=== PATIENT | male | born 1965 | race Caucasian/White ===

== ENCOUNTER → 2016-09-07 | Outpatient (CLI) | payer OTHER ==
[~2016-09-07] MED LIST: ATOR10TA66 PO; CHOL200035 PO; FISH1CAP15 PO; HYDR-3730 PO; MELO-195 PO; MULT1CAP27 PO; RABE20TA PO
--- OUTSIDE RECORDS SUMMARY | 2016-09-07 15:51 | XMS REPORT | Continuity of Care Document ---
Author Author [facility] Organization [facility] Address Unknown Phone Unavailable Allergies Active Description Code Type Severity Reaction Onset Reported/Identified Relationship to Patient Clinical Status Yes No Known Drug Allergies [id number] Drug Allergy Unknown N/ A 12/11/2014 Medications Problems Date Dx Coded Attending Type Code Diagnosis Diagnosed By 12/12/2014 Ot 723.1 12/12/2014 JENNIE ROJAS, BRIANNE Lorenzo Ot 807.02 12/12/2014 JENNIE ROJAS, BRIANNE Lorenzo Ot E000.8 12/12/2014 JENNIE ROJAS, BRIANNE Lorenzo Ot E849.0 12/12/2014 JENNIE ROJAS, BRIANNE Lorenzo Ot E885.9 12/12/2014 BRIANNE SCHNEIDER MD Ot V54.89 12/12/2014 KELSEY JENKINS MD Ot 717.7 12/12/2014 KELSEY JENKINS MD Ot 733.92 06/19/2015 KELSEY JENKINS MD Ot M94.261 06/19/2015 KELSEY JENKINS MD Ot Z79.899 07/02/2015 KELSEY JENKINS MD Ot M94.261 07/02/2015 KELSEY JENKINS MD Ot Z01.818 07/02/2015 KELSEY JENKINS MD Ot Z11.2 Procedures Results Encounters ACCT No. Visit Date/Time Discharge Status Pt. Type Provider Facility Loc./Unit Complaint [id number] 06/19/2015 06:00:00 2014 10:05:00 DIS Outpatient KELSEY JENKINS MD [facility] [id number] 12/12/2014 07:48:00 2014 12:25:00 DIS Outpatient KELSEY JENKINS MD [facility] [id number] 12/11/2014 08:55:00 2014 23:59:59 CLS Outpatient KELSEY JENKINS MD [facility] PREOP [id number] 03/08/2014 08:14:00 2013 23:59:59 CLS Outpatient BRIANNE SCHNEIDER MD [facility] RAD [id number] 06/29/2013 10:21:00 2012 23:59:59 CLS Outpatient BRIANNE SCHNEIDER MD [facility] RAD [id number] 06/13/2015 07:55:00 ACT Outpatient KELSEY JENKINS MD [facility] PREOP [id number] 01/09/2011 08:05:00 Document Registration
--- NOTE | 2016-09-07 19:04 | Diagnostic Imaging Report ---
INDICATION: Worsening low back pain AP and lateral views of the lumbar spine are obtained. Lumbar spinal curvature and alignment are within normal limits. Vertebral body heights and disc spaces are maintained. There is no evidence of fracture or malalignment. There are no abnormal lytic or sclerotic focus. IMPRESSION: No radiographic evidence of acute lumbar spinal abnormality. Dictated by: Dictated on workstation # [id number]
== END ==
LOC: RAD 15:49
PROVIDERS: ATTEND Nurse Practitioner Family
DX: M54.5 Low back pain (principal)
CPT/HCPCS: 72100

== ENCOUNTER 2018-01-07 05:39 | Outpatient (CLI) | payer OTHER ==
[~2018-01-07] VITALS: Ht 185.4 cm; Wt 83.0 kg
[2018-01-07] MEDS ORDERED: ATOR10TA66 PO (12:11)
[2018-01-07] MEDS ORDERED: ASCO10006 PO (12:11)
[2018-01-07] MEDS ORDERED: MELO15TA39 PO (12:11)
[2018-01-07] MEDS ORDERED: OMEG-109 PO (12:11)
[2018-01-07] MEDS ORDERED: ZOLP10TA PO (12:11)
[2018-01-07] MEDS ORDERED: RABE20TA27 PO (12:11)
== END 2018-01-07 12:56 ==
LOC: PREOP 05:39
PROVIDERS: ATTEND Surgery
DX: Z01.818 Encounter for other preprocedural examination (principal)

== ENCOUNTER 2018-01-13 08:20 | Day surgery (SDC) | payer OTHER ==
[~2018-01-13] VITALS: Ht 185.4 cm; Wt 83.0 kg
[~2018-01-13 08:20] MED LIST changes: +ASCO10006 PO; +MELO15TA39 PO; +OMEG-109 PO; +RABE20TA27 PO; +ZOLP10TA PO
[2018-01-13 08:30] VITALS: BP 133/78
[2018-01-13] MEDS ORDERED: NS IV 500 ML 500 ML ONE (08:46)
[2018-01-13] MEDS ORDERED: NS IV 500 ML 500 ML IV PRN (08:46)
[2018-01-13] MEDS ORDERED: fentaNYL INJECTION 100 MCG/2 ML AMP ONE (10:23)
[2018-01-13] MEDS ORDERED: MIDAZOLAM 2 MG/2 ML (VERSED) VIAL ONE ×4 (10:23→10:24)
[2018-01-13] MEDS: MIDAZOLAM 2 MG/2 ML (VERSED) VIAL IVP PRN ×4 (10:33→10:39)
[2018-01-13] MEDS: fentaNYL INJECTION 100 MCG/2 ML AMP IVP PRN ×2 (10:34→10:36)
--- NOTE | 2018-01-13 10:51 | Conscious Sedation/ASA ---
Conscious Sedation Pre-Proced Time Reviewed: 09:55 ASA Class: 2 Airway Mallampati Classification: (shinnecock appropriate class) I. II. III, IV Lungs Heart ASA score ASA 1: a normal healthy patient ASA 2: a patient with a mild systemic disease (mid diabetes, controlled hypertension, obesity ASA 3: a patient with a severe systemic disease that limits activity (angina , COPD, prior Myocardial infarction) ASA 4: a patient with an incapacitating disease that is a constant threat to life (CHF, renal failure) ASA 5: a moribund patient not expected to survive 24 hrs. (ruptured aneurysm) ASA 6: a declared brain patient whose organs are being harvested. For emergent operations, add the letter E after the classification Grade 1 Sedation Plan: Discussed options with patient/fam Note The patient is an appropriate candidate to undergo the planned procedure, sedation, and anesthesia. The patient immediately re-assessed prior to indication. LUIS WATKINS MD Jan 13, 2018 10:51 am
--- NOTE | 2018-01-13 10:51 | History & Physicial ---
History of Present Illness History of Present Illness Reason for visit/HPI To undergo screening colonoscopy. Denies any relevant family history. Date of Admission 01/13/18 Date Seen by Provider: Jan 13, 2018 Time Seen by Provider: 09:55 I consulted on this patient on 01/13/18 10:48 Attending Physician Luis Walton MD Admitting Physician Gi Valverde MD Consult Allergies and Home Medications Allergies Coded Allergies: No Known Drug Allergies (Unverified , 01/07/18) Home Medications Ascorbic Acid 1,000 Mg Tablet, 1,000 MG PO DAILY, (Reported) Atorvastatin Calcium 10 Mg Tablet, 10 MG PO HS, (Reported) Meloxicam 15 Mg Tablet, 15 MG PO DAILY, (Reported) Cougar-3 Fatty Acids/Fish Oil 1 Each Capsule, 1 EACH PO DAILY, (Reported) Rabeprazole Sodium 20 Mg Tablet.dr, 20 MG PO DAILY, (Reported) Zolpidem Tartrate 10 Mg Tablet, 5 MG PO HS, (Reported) Patient Home Medication List Home Medication List Reviewed: Yes Past Myqbwgb-Eeumsf-Kszput Hx Patient Social History Marrital Status: Employed/Student: employed Alcohol Use: Rarely Uses Recreational Drug Use: No Smoking Status: Never a Smoker Recent Foreign Travel: No Contact w/other who traveled: No Recent Hopitalizations: No Recent Infectious Disease Expo: No Seasonal Allergies Seasonal Allergies: No Surgeries Yes Orthopedic Respiratory No Cardiovascular No High Cholesterol Neurological No Reproductive System Hx Reproductive Disorders: No Sexually Transmitted Disease: No HIV/AIDS: No Genitourinary No Gastrointestinal Yes Gastroesophageal Reflux, Chronic Diarrhea Musculoskeletal Yes Arthritis Endocrine History of Endocrine Disorders: No HEENT History of HEENT Disorders: Yes Loss of Vision: Denies Hearing Impairment: Denies Cancer No Psychosocial History of Psychiatric Problem: No Integumentary History of Skin or Integumenta: No Blood Transfusions Adverse Reaction to a Blood Tr: No (N/A) Reviewed Nursing Assessment Reviewed/Agree w Nursing PMH: No Constitutional: no symptoms reported EENTM: no symptoms reported Respiratory: no symptoms reported Cardiovascular: no symptoms reported Gastrointestinal: no symptoms reported Genitourinary: no symptoms reported Musculoskeletal: joint pain Skin: no symptoms reported Psychiatric/Neurological: No Symptoms Reported Physical Exam Vital Signs Vital Signs - First Documented 01/13/18 08:30 Temp 97.6 Pulse 62 Resp 20 B/P (MAP) 133/78 (96) Pulse Ox 98 O2 Delivery Room Air Capillary Refill : Height, Weight, BMI Height: 6'1.00" Weight: 183lbs.0.0oz.[id number]; 24.1 BMI Method: General Appearance: No Apparent Distress Neck: Normal Inspection Respiratory: Lungs Clear Cardiovascular: Regular Rate, Rhythm Gastrointestinal: Non Tender, Soft Rectal: Deferred Extremity: Normal Inspection Neurologic/Psychiatric: Oriented x3 Skin: Warm/Dry Assessment/Plan Assessment and Plan Gentleman here to undergo screening colonoscopy. Discussed in detail. Admission Diagnosis Admission Status: Other (Outpt Proc) LUIS WALTON MD Jan 13, 2018 10:51 am
--- NOTE | 2018-01-13 10:53 | Endo Procedure Record ---
Endo Procedure Report Date of Procedure Last Colonoscopy: Yes (2006) Jan 13, 2018 Surgeon (s) LUIS WATKINS MD Post Procedure/Op Diagnosis Normal colonoscopy Procedure Performed Colonoscopy to cecum Description of Procedure Anesthesia Type: Conscious Sedation Specimen(s) collected/removed None Description of the Procedure Indication for the procedure: This gentleman came in for screening colonoscopy. He denied any family history of polyps and colon cancer. Informed consent was obtained after reviewing the procedure in detail. Description of procedure: He was placed in left lateral decubitus position and his vital signs were monitored. Conscious sedation was achieved using Versed and fentanyl. Digital rectal examination was unremarkable. The colonoscope was introduced and advanced all the cecum Quality of bowel preparation was reasonable. The scope was then withdrawn slowly and the mucosa examined in a systematic fashion. There was no abnormality He tolerated the procedure well and was taken back to the nursing area in a stable condition. Impression: Normal screening colonoscopy. No family history. Recommend repeating in 10 years. Copy Copies To 1: MIGUELINA NATHAN MD, XAVIER M MD Jan 13, 2018 10:53 am
--- NOTE | 2018-01-13 10:54 | Discharge Inst-Simple/Standard ---
Discharge Inst-Standard Discharge Medications New, Converted or Re-Newed RX: Other Patient Instructions/Follow Up Plan of Care/Instructions/FU: Repeat colonoscopy in 10 years Activity as Tolerated: Yes Discharge Diet: No Restrictions LUIS WATKINS MD Jan 13, 2018 10:54 am
[2018-01-13 11:15] VITALS: BP 114/65
[2018-01-13 11:44] VITALS: BP 126/90
[2018-01-13 11:50] VITALS: BP 114/65
== END 2018-01-13 11:50 | disposition home or self-care (01) ==
LOC: ENDO 08:20
PROVIDERS: ATTEND Surgery
DX: Z12.11 Encounter for screening for malignant neoplasm of colon (principal)

== ENCOUNTER → 2018-12-23 | Outpatient (CLI) | payer OTHER | LOC: RAD 13:39 | PROVIDERS: ATTEND Orthopaedic Surgery | DX: M75.112 Incomplete rotator cuff tear or rupture of left shoulder, not specified as traumatic (principal); Z53.8 Procedure and treatment not carried out for other reasons ==

== ENCOUNTER 2021-05-15 10:02 | Outpatient (CLI) | payer OTHER ==
[~2021-05-15] VITALS: Ht 185.4 cm; Wt 83.9 kg
[~2021-05-15 10:02] MED LIST changes: +ASCO100024 PO; -ASCO10006 PO; -RABE20TA27 PO; +RABE20TA30 PO
[2021-05-15] MEDS ORDERED: ONDANSETRON 4 MG/2 ML (SDV) Z0FRAN IV PRN (10:15)
[2021-05-15] MEDS ORDERED: EPINEPHrine INJECTION 1 MG/ML AMP IM PRN (10:15)
[2021-05-15] MEDS ORDERED: CASIRIVIMAB/IMDEVIMAB 1,200 MG in NS (IVPB) 250 ML IV ONE (10:15)
[2021-05-15] MEDS ORDERED: ACETAMINOPHEN 500 MG TAB (TYLENOL) PO PRN (10:15)
[2021-05-15] MEDS ORDERED: diphenhydrAMINE 50 MG/ML INJ (BENADRYL) IV PRN (10:15)
[2021-05-15 10:32] VITALS: BP 159/82
[2021-05-15 11:35] VITALS: BP 139/91
== END 2021-05-15 11:37 | disposition home or self-care (01) ==
LOC: INFUSION 10:02
PROVIDERS: ATTEND Nurse Practitioner Family
DX: U07.1 COVID-19 (principal)